=== PATIENT | male | born 2000 | race Caucasian/White ===

== ENCOUNTER 2022-11-27 19:57 | Emergency (ER) | payer MEDICAID, SELFPAY ==
--- NOTE | 2022-11-27 20:18 | ED_ITS ---
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 His son is recently experiencing similar symptoms, age 5. No fevers but he has had runny nose and some upper respiratory symptoms. He denies any vision changes except for some mild blurriness when there is pus and drainage present. He denies any foreign body sensation. He does not wear contact lenses. chief complaint: eye pain and eye redness Onset (ago): day(s) Onset description: gradual Duration: constant Location: both eyes Eye Symptoms: burning, redness, pain and discharge Place: home Mechanism: none Severity: moderate Context: recent URI Associated symptoms: none Treatments Prior to Arrival: none Related Data Previous Rx's Medication Instructions Recorded gentamicin 0.3 % eye drops 1 drp ophthalmic (eye) Q4H #5 mL 11/27/22 ibuprofen 600 mg tablet 600 mg PO Q8H PRN pain #10 tabs 11/27/22 Allergies Allergy/AdvReac Type Severity Reaction Status Date / Time No Known Allergies Allergy Verified 11/27/22 20:25 Review of Systems Review of Systems: Yes all other systems are reviewed and are negative [facility] Social History Social History Advance Directives: No Advance Directives Information Provided: No Physical Exam Vital Signs: Vital Signs: Last Vital Signs Temp 98.3 F 11/27/22 20:22 Pulse 92 11/27/22 20:22 Resp 18 11/27/22 20:22 BP 129/76 11/27/22 20:22 Pulse Ox 97 11/27/22 20:22 O2 Del Method 11/27/22 20:22 BMI result Body Mass Index 22.3 Appearance: Alert. Oriented X3. No acute distress. HEENT: Bilateral eyes with scleral and conjunctival injection bilaterally, visible dried crusting on the superior lids and eyelashes. EOMI, PERRLA. CVS: Normal heart rate and rhythm. Pulses normal. Respiratory: No respiratory distress. Lungs are clear throughout Skin: Skin warm and dry. Normal skin color. Normal skin turgor. No rashes. Extremities: Normal inspection x4, normal range of motion Neuro: Oriented X 3. Grossly normal, nonfocal, normal speech and cognition. Steady gait Course Course Course Narrative: 21 yo male presenting with bilateral eye redness, drainage, burning sensation. Exam is consistent bacterial conjunctivitis. Will treat accordingly. Patient counseled on diagnosis and management. Stable for discharge home with topical antibiotics. Medical Decision Making Differential Diagnosis Differential Diagnoses: The differential diagnosis associated with the presentation includes Bacterial conjunctivitis, viral conjunctivitis, hordeolum, iritis, foreign body, chemical irritation Prescription Management I considered prescription management with: Pain Medication and Antibiotic Critical Care Time Critical Care Time Critical Care Time: No Discharge Plan Discharge Clinical Impression: Conjunctivitis Patient Disposition: Home, Self-Care Instructions: Conjunctivitis (ED) Additional Instructions: use warm compresses on your eyes to help with crusting, pain and discharge use the prescribed antibiotic drops as directed follow up with your doctor as needed Prescriptions: New gentamicin 0.3 % drops 1 drp ophthalmic (eye) Q4H Qty: 5 0RF ibuprofen 600 mg tablet 600 mg PO Q8H PRN (Reason: pain) Qty: 10 0RF
[2022-11-27 20:22] VITALS: BP 129/76; PULSE 92; RESP 18; TEMP 36.8; O2SAT 97; BMI 22.3
== END 2022-11-27 20:41 | disposition home or self-care (01) ==
PROVIDERS: Emergency Provider Internal Medicine
DX: H10.9 Unspecified conjunctivitis (principal); Z79.899 Other long term (current) drug therapy
CPT/HCPCS: 99282; 99283